=== PATIENT | male | born 1960 | race Caucasian/White ===

== ENCOUNTER 2019-04-14 08:26 | Emergency (ER) | payer OTHER ==
[~2019-04-14] VITALS: Ht 195.6 cm; Wt 106.6 kg
--- NOTE | 2019-04-14 08:32 | NUR ---
Patient to ER bed 07 to gown for evaluation. Side rails up.
--- NOTE | 2019-04-14 08:34 | NUR ---
Patient arrived in the ED c/o right-sided lower back pain that started this morning. Denied any chest pain or shortness of breath. Denied any fevers, chills, nausea or vomiting. Patient is alert and oriented x4, respirations even and unlabored, speaking in full sentences and ambulating with a steady gait. VSS, pain level 10/10. Informed of approximate wait time. Instructed to notify ED staff for any changes in condition or worsening of symptoms while waiting to be seen by a provider. Patient verbalized understanding.
[2019-04-14] MEDS ORDERED: NACL 0.9% 1,000 ML IV ONE (08:40)
[2019-04-14 08:41] VITALS: BP_SYST 132
--- NOTE | 2019-04-14 08:43 | NUR ---
ER Dr. Lopez at bedside examining patient.
[2019-04-14] MEDS ORDERED: MORPHINE 4 MG/ML INJ. SYRINGE IVP ONE ×2 (08:45→10:15)
[2019-04-14] MEDS ORDERED: KETOROLAC TROMETHAMINE 30 MG VIAL IVP ONE (08:45)
[2019-04-14] MEDS ORDERED: ONDANSETRON HCL 4 MG/2 ML VIAL IVP ONE (08:45)
--- NOTE | 2019-04-14 08:50 | NUR ---
# 20 gauge angiocath placed to Left hand. Use of asceptic technique. Opsite placed over site. Blood return noted. Blood for lab drawn from site. Flushed with 10 cc of normal saline. No evidence of infiltration noted. Patient tolerated well.
--- NOTE | 2019-04-14 09:00 | NUR ---
Administered Toradol, Morphine Sulfate and Zofran IVP as ordered by Dr. Lopez. Patient tolerated the medications well. See eMAR for details.
[2019-04-14 09:03] LABS: BASOPHILS % (AUTO) 0.5 % (0.0-2.0); EOSINOPHILS # (AUTO) 0.2 K/uL (0.0-0.4); HEMATOCRIT 46.7 % (36-54); HEMOGLOBIN 15.9 g/dL (14.0-18.0); LYMPHOCYTES # (AUTO) 2.5 K/uL (1.0-5.5); LYMPHOCYTES % (AUTO) 30.4 % (20.5-51.5); MEAN CORPUSCULAR HEMOGLOBIN 34 pg (27-31); MEAN CORPUSCULAR HGB CONC 34 % (32-36); MEAN CORPUSCULAR VOLUME 101 fL (79.0-98.0); MONOCYTES # (AUTO) 0.7 K/uL (0.0-1.0); MONOCYTES % (AUTO) 8.3 % (1.7-9.3); NEUTROPHILS # (AUTO) 4.8 K/uL (1.8-7.7); NEUTROPHILS % (AUTO) 58.8 % (40.0-70.0); PLATELET COUNT (AUTO) 222 K/uL (130-430); RED BLOOD CELL COUNT(AUTO) 4.63 MIL/uL (4.2-6.2); RED CELL DISTRIBUTION WIDTH 13.1 % (9.0-15.0); WHITE BLOOD COUNT (AUTO) 8.1 K/uL (4.8-10.8)
--- NOTE | 2019-04-14 09:04 | NUR ---
Patient is taken to CT via gurney, in stable condition.
[2019-04-14 09:14] LABS: CALCIUM 9.6 mg/dL (8.4-11.0); CREATININE 1.06 mg/dL (0.55-1.30); POTASSIUM 4.2 mmol/L (3.5-5.1)
--- NOTE | 2019-04-14 09:15 | NUR ---
Patient is back from CT, in stable condition.
[2019-04-14 09:19] LABS: ALBUMIN 4.4 g/dL (3.4-4.8); TOTAL BILIRUBIN 0.7 mg/dL (0.0-1.0)
--- NOTE | 2019-04-14 09:35 | NUR ---
Patient ambulated to the bathroom with a steady gait. Urine specimen collected and dropped off at the lab.
--- NOTE | 2019-04-14 10:19 | NUR ---
Administered Morphine Sulfate IVP as ordered by Dr. Lopez. Patient tolerated the medications well. See eMAR for details.
[2019-04-14 10:24] LABS: BILIRUBIN,URINE NEGATIVE (NEGATIVE); CLARITY/URINE CLEAR (CLEAR); COLOR,URINE YELLOW (YELLOW); GLUCOSE,URINE NEGATIVE (NEGATIVE); KETONES,URINE 1+ (NEGATIVE); LEUKOCYTE ESTERASE ,URINE NEGATIVE (NEGATIVE); NITRITE, URINE NEGATIVE (NEGATIVE); PH,URINE 8.5 (5.0-8.0); PROTEIN URINE NEGATIVE (NEGATIVE); UROBILINOGEN,URINE 0.2 (0.2-1.0)
[2019-04-14 10:38] LABS: BLOOD, URINE TRACE (NEGATIVE)
[2019-04-14 10:56] LABS: BACTERIA,URINE FEW /HPF (None Seen); WBC,URINE 0-3 /HPF (0-3)
[2019-04-14 11:00] VITALS: BP_SYST 132
--- NOTE | 2019-04-14 11:00 | NUR ---
Patient given written and verbal discharge instructions and verbalizes understanding. ER MD discussed with patient the results and treatment provided. Patient in stable condition. ID arm band removed. IV catheter removed intact and dressing applied, no active bleeding. Rx of Tramadol and Flomax given. Patient educated on pain management and to follow up with PMD. Pain Scale 0/10. Opportunity for questions provided and answered. Medication side effect fact sheet provided.
== END 2019-04-14 11:00 | disposition home or self-care (01) ==
LOC: SED 08:26
DX: N23 Unspecified renal colic (principal); I10 Essential (primary) hypertension
CPT/HCPCS: 36415; 74176; 80053; 81000; 81002; 85025; 96374; 96375; 96376; 99284; J1885; J2270; J2405; J7030